=== PATIENT | female | born 1970 | race American Indian/Alaskan Native ===

== ENCOUNTER 2018-10-09 06:38 | Emergency (ER) | payer OTHER ==
[2018-10-09 07:21] VITALS: BP 167/92
--- NOTE | 2018-10-09 07:40 | Emergency Department Report ---
Minor Respiratory - HPI Chief Complaint: Upper Respiratory Infection Stated Complaint: COUGH/SOB Time Seen by Provider: 10/09/18 07:31 Duration: 3 Days Pain Location: Facial, Throat Severity: mild Minor Respiratory: Yes Sore Throat, Yes Able to Tolerate Fluids, Yes Cough, No Rhinorrhea, No Ear Pain, No Sick Contacts, No Hemoptysis, No Chest Pain, No Shortness of Breath, No Fever Other History: PT IS 48 YO FEMALE WHO REPORTS A COUGH FOR A COUPLE WEEKS. OTC MEDS ARE NOT HELPING. DENIES FEVER OR CHILLS. ED Review of Systems ROS: Stated complaint: COUGH/SOB Other details as noted in HPI Comment: All other systems reviewed and negative Constitutional: see HPI Eyes: as per HPI. denies: eye pain ENT: as per HPI. denies: ear pain Respiratory: see HPI. denies: cough Cardiovascular: denies: orthopnea Endocrine: denies: flushing Gastrointestinal: denies: nausea Genitourinary: denies: urgency Musculoskeletal: denies: back pain Skin: denies: lesions Neurological: denies: weakness Psychiatric: denies: anxiety Hematological/Lymphatic: denies: easy bleeding ED Past Medical Hx - Past Medical History Previous Medical History?: Yes Hx Hypertension: Yes Additional medical history: bronchitis. hypothyroidism - Surgical History Past Surgical History?: Yes Additional Surgical History: - Social History Smoking Status: Current Every Day Smoker Substance Use Type: Alcohol - Medications Home Medications: Home Medications Medication Instructions Recorded Confirmed Last Taken Type Amoxicillin 500 mg PO BID #20 capsule 10/09/18 Unknown Rx Benzonatate [Tessalon Perles] 100 mg PO Q8HR PRN #20 capsule 10/09/18 Unknown Rx Fluticasone [Flonase] 1 spray NS QDAY #1 bottle 10/09/18 Unknown Rx methylPREDNISolone [Medrol] 4 mg PO DAILY #1 tab.ds.pk 10/09/18 Unknown Rx Minor Respiratory Exam - Exam General: Vital signs noted. No distress. Alert and acting appropriately. HEENT: Yes Pharyngeal Erythema, Yes Moist Mucous Membranes, No Pharyngeal Exud ates, No Rhinorrhea, No Conjuctival Injection, No Frontal Tenderness, No Maxillary Tenderness Ear: Neither TM Bulge, Neither TM Erythema, Neither EAC Pain, Neither EAC Discharge Neck: Yes Supple, No Adenopathy Lungs: Yes Good Air Exchange, Yes Cough, No Wheezes, No Ronchi, No Stridor, No Labored Respirations, No Retractions, No Use of Accessory Muscles, No Other Abnormal Lung Sounds Heart: Yes Regular, No Murmur Abdomen: Yes Normal Bowel Sounds, No Tenderness, No Peritoneal Signs Skin: No Rash, No Edema Neurologic: Alert and oriented, no deficits. Musculoskeletal: Unremarkable. ED Course Vital Signs 10/09/18 07:17 Temperature 98.8 F Pulse Rate 71 Respiratory 20 Rate Blood Pressure 167/92 O2 Sat by Pulse 100 Oximetry ED Medical Decision Making - Medical Decision Making Vital Signs 10/09/18 07:17 Temperature 98.8 F Pulse Rate 71 Respiratory 20 Rate Blood Pressure 167/92 O2 Sat by Pulse 100 Oximetry SIMPLE URTI HX OF BRONCHITIS AMBULATORY WITH SAT OF 100% NON TOXIC TAKING PO AFEBRILE DC HOME WITH DC PLAN OF CARE AND FOLLOW UP Critical care attestation.: If time is entered above; I have spent that time in minutes in the direct care of this critically ill patient, excluding procedure time. ED Disposition Clinical Impression: URTI (acute upper respiratory infection) Disposition: DC-01 TO HOME OR SELFCARE Is pt being admited?: No Does the pt Need Aspirin: No Condition: Stable Instructions: Upper Respiratory Infection (ED) Additional Instructions: Medications as ordered today Hydrate well with water Motrin or Tylenol for fever follow up pcp Prescriptions: Amoxicillin 500 mg PO BID #20 capsule Benzonatate [Tessalon Perles] 100 mg PO Q8HR PRN #20 capsule PRN Reason: Cough Fluticasone [Flonase] 1 spray NS QDAY #1 bottle methylPREDNISolone [Medrol] 4 mg PO DAILY #1 tab.ds.pk Referrals: [facility] [Outside] - 3-5 Days Time of Disposition: 07:39
[2018-10-09] MEDS ORDERED: MOTRIN ONE (07:43)
== END 2018-10-09 08:18 | disposition home or self-care (01) ==
LOC: ED 06:38
DX: J06.9 Acute upper respiratory infection, unspecified (principal); I10 Essential (primary) hypertension; E03.9 Hypothyroidism, unspecified; F17.200 Nicotine dependence, unspecified, uncomplicated
CPT/HCPCS: 99281